=== PATIENT | female | born 1965 | race Asian ===

== ENCOUNTER 2018-07-30 15:32 | Emergency (ER) | payer SELFPAY ==
[~2018-07-30] VITALS: Ht 152.4 cm; Wt 65.3 kg
[2018-07-30 15:32] VITALS: BP 127/93
--- NOTE | 2018-07-30 16:10 | NUR ---
initial contact with pt no distress seen and eval by PA
[2018-07-30] MEDS ORDERED: IBUPROFEN 600 MG TABLET PO ONE ×2 (16:21→16:30)
== END 2018-07-30 16:31 | disposition home or self-care (01) ==
LOC: ER 15:35
DX: R51 Headache (principal); M54.2 Cervicalgia; I10 Essential (primary) hypertension; Z88.2 Allergy status to sulfonamides; Z88.1 Allergy status to other antibiotic agents; V49.49XA Driver injured in collision with other motor vehicles in traffic accident, initial encounter; Y93.89 Activity, other specified; Y92.413 State road as the place of occurrence of the external cause; Y99.8 Other external cause status
CPT/HCPCS: 99283; A4606; Z7610